=== PATIENT | female | born 1930 | race Caucasian/White ===

== ENCOUNTER → 2016-12-23 | Outpatient (CLI) | payer OTHER, BC ==
--- NOTE | 2016-12-23 15:02 | DIAGNOSTIC IMAGING REPORT ---
PROCEDURE: MR UPPER EXTREMITY W/O CONT-RT INDICATION: CHRONIC R SHOULDER PAIN, R/O IMPINGEMENT TECHNIQUE: PD and PD fat sat axial, T1 and PD fat sat coronal, PD and STIR sagittal sequences through the shoulder. COMPARISON: None. FINDINGS: Study was somewhat limited secondary to unavoidable patient motion on some sequences. Rotator cuff: Tendinopathy and partial bursal surface tearing of the rotator cuff fibers in the critical zone. There is tendinopathy distally involving the undersurface fibers as well. There is no full-thickness tear. Attenuation and fraying is seen in the distal fibers of the subscapularis tendon. Transverse humeral ligament appears intact. Biceps tendon: There is tendinopathy of the intra-articular biceps at the origin and intrinsic intermediate signal in the intra-articular portion. The extra-articular portion appears quite attenuated and there is some fluid in the tendon sheath. In the absence of intra-articular contrast, the rotator interval structures are suboptimally defined. Osseous structures and articular surfaces: Degenerative subcortical cystic changes seen throughout the lateral aspect of the humeral head underlying the rotator cuff insertion. The acromion is type 2. There is caudal angulation of the lateral acromion and undersurface spurring which impinges directly on the myotendinous region of the rotator cuff. There is moderate degenerative hypertrophy at the acromioclavicular joint without significant caudal impingement. Slight superior subluxation of the humeral head in the glenoid fossa with decreased acromiohumeral interval of about 5 mm, also accentuated by a undersurface acromial spurring. Cartilage thinning over the superior humeral head articular surface and mildly throughout the glenoid fossa. Labral ligamentous complex: In the absence of intra-articular contrast, the glenoid labrum appears intact. Supporting ligaments of the humeral head are grossly intact. Fluid, soft tissues, and joint space: Moderate subacromial subdeltoid bursal fluid and edema. No significant glenohumeral joint effusion. Small amount of fluid tracking proximally in the subscapularis recess. Mild edema within the distal aspect of the supraspinatus muscle near the myotendinous junction and is slight fatty infiltration of the muscle more proximally. The infraspinatus, teres minor, and subscapularis muscles appear normal. IMPRESSION: 1. Tendinopathy and partial thickness tearing of the rotator cuff at the critical zone secondary to sub acromial impingement. This results in mild myotendinous edema and very slight muscular atrophy of the supraspinatus. 2. Tendinopathy and probable longitudinal tearing of the intra-articular and proximal extra-articular portion the biceps tendon without subluxation. 3. Mild glenohumeral joint cartilage loss diffusely. 4. 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 5. Moderate subacromial subdeltoid bursitis.
== END ==
LOC: MRI SRH 12:22
DX: M19.011 Primary osteoarthritis, right shoulder (principal); M75.41 Impingement syndrome of right shoulder; M75.51 Bursitis of right shoulder; M75.21 Bicipital tendinitis, right shoulder; M75.81 Other shoulder lesions, right shoulder